=== PATIENT | male | born 1945 | race American Indian/Alaskan Native ===

== ENCOUNTER 2016-10-18 16:31 | Inpatient (IN) | payer MEDICARE ==
[2016-10-18 16:36] VITALS: BMI 25.1
[2016-10-18 17:06] LABS: BASO # 0.1 K/uL (0.0-0.2); BASO % 1.7 % (0.0-2.0); EOS # 0.2 K/uL (0.0-0.7); HEMOGLOBIN 12.8 g/dL (12.0-18.0); LYMPH # 1.2 K/uL (1.0-4.3); LYMPH % 22.8 % (20.0-40.0); MEAN CELL VOLUME 83.8 fL (80.0-94.0); MEAN CORPUSCULAR HEMOGLOBIN 27.2 pg (27.0-31.0); MEAN CORPUSCULAR HGB CONC 32.5 g/dL (33.0-37.0); MEAN PLATELET VOLUME 8.5 fL (7.2-11.7); MONO # 0.6 K/uL (0.0-0.8); MONO % 11.8 % (0.0-10.0); NEUT # 3.1 K/uL (1.8-7.0); NEUT % 59.7 % (50.0-75.0); NRBC % 0.1 % (0.0-2.0); RBC 4.72 Mil/uL (4.40-5.90); RED CELL DISTRIBUTION WIDTH 16.3 % (11.5-14.5); WHITE BLOOD COUNT 5.1 K/uL (4.8-10.8)
--- NOTE | 2016-10-18 17:07 | C.PDOC ---
History Of Present Illness 71 y/o male with hx of Afib, HTN, gout presents to the ED with complaints of slurred speech and weakness. Pt noncompliant with medications (supposed to be on coumadin and BP meds), takes colchicine occasionally. Son states patient will take cayenne pepper when his blood pressure is elevated. Yesterday, patient had episode of slurred speech and weakness, took cayenne and speech returned to normal. Today patient woke up with slurred speech which has been persistent. Patient hasn't been ambulatory for the past year but can usually stand to transfer. Today he isn't able to stand and is weaker than usual. Patient states he hasn't been able to straighten his leg since receiving abx injection in the buttock. Denies chest pain, SOB, vomiting, dizziness, headache or any other complaints. Time Seen by Provider: 10/18/16 16:36 Chief Complaint (Nursing): Weakness/Neurological Deficit History Per: Patient History/Exam Limitations: no limitations Onset/Duration Of Symptoms: Hrs, Persistent Current Symptoms Are (Timing): Still Present Severity: Moderate Recent travel outside of the [place]: No Additional History Per: Family Past Medical History Reviewed: Historical Data, Nursing Documentation, Vital Signs Vital Signs: Last Vital Signs Temp 98.3 F 10/18/16 17:05 Pulse 48 L 10/18/16 18:21 Resp 18 10/18/16 18:21 BP 171/77 H 10/18/16 18:21 Pulse Ox 97 10/18/16 18:21 - Medical History PMH: Arthritis, Atrial Fibrillation, COPD, Depression, HTN, Pneumonia, Chronic Kidney Disease - [facility] Procedures EXCISION OF RIGHT LOWER LEG MUSCLE, OPEN APPROACH, DIAGN (04/09/16) EXCISION OF TIBIAL NERVE, OPEN APPROACH, DIAGNOSTIC (04/09/16) Family History: States: Unknown Family Hx - Social History Hx Alcohol Use: No Hx Substance Use: No - Immunization History Hx Tetanus Toxoid Vaccination: No Hx Influenza Vaccination: No Hx Pneumococcal Vaccination: No Review Of Systems Except As Marked, All Systems Reviewed And Found Negative. Eyes: Negative for: Vision Change Cardiovascular: Negative for: Chest Pain Respiratory: Negative for: Shortness of Breath Gastrointestinal: Negative for: Vomiting Neurological: Positive for: Weakness, Change in Speech (slurred). Negative for : Headache, Dizziness Physical Exam - Physical Exam Appears: Non-toxic, No Acute Distress Skin: Warm, Dry, No Rash Head: Atraumatic, Normacephalic, Other (Head and neck with silver howard discoloration) Eye(s): bilateral: PERRL, EOMI Neck: Normal ROM, Supple Chest: Symmetrical Cardiovascular: Rhythm Regular, No Murmur Respiratory: Normal Breath Sounds, No Rales, No Rhonchi, No Wheezing Gastrointestinal/Abdominal: Normal Exam, Soft, No Tenderness Extremity: Normal ROM, Other (able to stand on legs; unable to fully extend right leg) Extremity: Bilateral: Atraumatic Pulses: Left Dorsalis Pedis: Normal, Right Dorsalis Pedis: Normal Neurological/Psych: Oriented x3, Normal Speech, Normal Cognition, Normal Motor, Normal Sensation Extremity: Right: No Drift, Left: No Drift, Upper: No Drift, Lower: No Drift ED Course And Treatment - Laboratory Results Result Diagrams: 10/18/16 16:56 10/18/16 16:56 Lab Interpretation: No Changes Compared To Prior Results ECG: Interpreted By Me ECG Rhythm: Atrial Fibrillation (with LVH), ST/T Changes (T wave inversion I, AVL, V4-6) ECG Interpretation: Abnormal O2 Sat by Pulse Oximetry: 98 (room air) Pulse Ox Interpretation: Normal - Radiology CXR: Viewed By Me, Read By Radiologist CXR Interpretation: Yes: No Acute Disease, Cardiomegaly - CT Scan/US CT head Other Rad Studies (CT/US): Read By Radiologist, Radiology Report Reviewed CT/US Interpretation: PROCEDURE: CT HEAD WITHOUT CONTRAST. HISTORY: stroke alert. COMPARISON: Prior head CT 04/10/2016. TECHNIQUE: Axial computed tomography images were obtained through the head/brain without intravenous contrast. Radiation dose: Total exam DLP = 905 mGy-cm. This CT exam was performed using one or more of the following dose reduction techniques: Automated exposure control, adjustment of the mA and/or kV according to patient size, and/or use of iterative reconstruction technique. FINDINGS: HEMORRHAGE: No intracranial hemorrhage. BRAIN: No mass effect or acute edema. Diffusion oral atrophy and chronic microangiopathy appear reiterated as well as a few tiny chronic lacune is at the right base a ganglia anteromedially and a small lobar infarct at the right cerebellum inferiorly. No definite acute or subacute cortical edema or mass effect. Periventricular white matter lucency is again appreciated compatible with chronic microangiopathy. VENTRICLES: Mild diffuse dilatation related to diffuse cerebral atrophy is again identified. . No hydrocephalus. CALVARIUM: Unremarkable. PARANASAL SINUSES: Multiple sinusitis is seen involving numerous bilateral ethmoid air cells as well as the right maximum bilaterals frontal sinuses. Right mastoid and final sinuses disease made include a few small polyps. . MASTOID AIR CELLS: The bilateral mastoid air cells appear clear diffusely however soft tissue seen within the external artery canal suggestive of probable cerumen though other etiologies are possible. Clinically correlate. OTHER FINDINGS: None. IMPRESSION: 1. No acute intracranial hemorrhage, cortical edema or mass-effect is identified at this time. The examination does not appear dramatically changed intracranially compared to prior head CT 04/10/2016. 2. A few tiny chronic images seen at the right base medially once again with a small lobar infarct of the right cerebellum inferiorly. 3. Stable age related neuro degenerative changes are identified. 4. Multifocal sinus disease is as discussed above as well as external auditory canal soft tissue probably reflecting cerumen bilaterally though underlying soft tissue otherwise is not excluded. Clinically correlate further. Findings were discussed with Dr. Edwards. Progress Note: Plan: CT head, EKG, CXR, labs, UA, IV fluids Reevaluation Time: 18:05 Reassessment Condition: Improved (after Labetolol IV.) - Physician Consult Information Time Consulting Physician Contacted: 18:05 Physician Contacted: Michael Chavez Outcome Of Conversation: Patient to be admitted additional neurologic evaluation of slurred speech. Disposition - Disposition Disposition: HOSPITALIZED Disposition Time: 18:36 Condition: STABLE - POA Present On Arrival: None - Clinical Impression Clinical Impression: Atrial fibrillation, Renal insufficiency, Uncontrolled hypertension, Silver poisoning syndrome - Scribe Statement The provider has reviewed the documentation as recorded by the Marek Nash Provider Attestation: All medical record entries made by the Marek were at my direction and personally dictated by me. I have reviewed the chart and agree that the record accurately reflects my personal performance of the history, physical exam, medical decision making, and the department course for this patient. I have also personally directed, reviewed, and agree with the discharge instructions and disposition.
[2016-10-18 17:09] LABS: ALBUMIN 3.8 g/dL (3.5-5.0)
[2016-10-18 17:12] LABS: ALB/GLOB RATIO 1.1 (1.0-2.1)
[2016-10-18 17:13] LABS: CALCIUM 8.9 mg/dl (8.6-10.4)
--- NOTE | 2016-10-18 17:28 | RAD ---
PROCEDURE: CHEST RADIOGRAPH, 1 VIEW HISTORY: AMS COMPARISON: 04/09/2016 FINDINGS: LUNGS: Clear. PLEURA: No pneumothorax or pleural fluid seen. CARDIOVASCULAR: Normal. OSSEOUS STRUCTURES: No significant abnormalities. VISUALIZED UPPER ABDOMEN: Normal. OTHER FINDINGS: None. IMPRESSION: No active disease.
[2016-10-18] MEDS ORDERED: Labetalol 25mg/5ml Syringe IVP STA (17:51)
[2016-10-18] MEDS ORDERED: Labetalol 25mg/5ml Syringe ONE (18:01)
[2016-10-18 19:55] LABS: URINE BACTERIA MOD (<OCC); URINE BILIRUBIN NEGATIVE (NEGATIVE); URINE BLOOD NEGATIVE (NEGATIVE); URINE CLARITY Clear (Clear); URINE COLOR Yellow (YELLOW); URINE GLUCOSE (UA) NORMAL (Normal); URINE LEUKOCYTE ESTERASE NEG Leu/uL (Negative); URINE NITRATE NEGATIVE (NEGATIVE); URINE PROTEIN 2+ mg/dL (NEGATIVE); URINE UROBILINOGEN NORMAL mg/dL (0.2-1.0)
--- NOTE | 2016-10-19 07:57 | CP.PCM.HP ---
History of Present Illness - History of Present Illness History of Present Illness: 71 year old male who comes to the [facility] ER with slurred speech and weakness. Patient had a similar episode in May 2016. He is non compliant with his medications. Mr Cornelius has been peviously treated for atrial fibrillation,hypertension, and osteoarthritis. He frequently self medicates with a liquid silver solution. Present on Admission - Present on Admission Any Indicators Present on Admission: No History of DVT/PE: No History of Uncontrolled Diabetes: No Urinary Catheter: No Decubitus Ulcer Present: No History Surgical Site Infection Following: None Review of Systems - Constitutional Constitutional: Fatigue - EENT Eyes: Decreased Night Vision Nose/Mouth/Throat: Facial Pain - Cardiovascular Cardiovascular: Palpitations - Gastrointestinal Gastrointestinal: Constipation - Musculoskeletal Musculoskeletal: Arthralgias - Integumentary Integumentary: Change in Pigmentation - Neurological Neurological: Numbness Past Patient History - Infectious Disease Hx of Infectious Diseases: None - Tetanus Immunizations Tetanus Immunization: Unknown, >10 years Ago - Past Medical History & Family History Past Medical History?: Yes - Past Social History Smoking Status: denies - CARDIAC Hx Cardiac Disorders: Yes Hx Atrial Fibrillation: Yes Hx Hypertension: Yes Other/Comment: Patient can only state Hypertension can't remember anything else - PULMONARY Hx Respiratory Disorders: Yes Hx Chronic Obstructive Pulmonary Disease (COPD): Yes Hx Pneumonia: Yes Other/Comment: Patient can only state Hypertension can't remember anything else - NEUROLOGICAL Hx Neurological Disorder: No Hx Dizziness: Yes Other/Comment: Patient can only state Hypertension can't remember anything else - HEENT Hx HEENT Problems: No Other/Comment: Patient can only state Hypertension can't remember anything else - RENAL Hx Chronic Kidney Disease: Yes Other/Comment: Patient can only state Hypertension can't remember anything else - ENDOCRINE/METABOLIC Hx Endocrine Disorders: No Other/Comment: Patient can only state Hypertension can't remember anything else - HEMATOLOGICAL/ONCOLOGICAL Hx Blood Disorders: No Other/Comment: Patient can only state Hypertension can't remember anything else - INTEGUMENTARY Hx Dermatological Problems: No Other/Comment: skin has silverish huge. Patient can only state Hypertension can 't remember anything else - MUSCULOSKELETAL/RHEUMATOLOGICAL Hx Arthritis: Yes Hx Falls: No Other/Comment: Patient can only state Hypertension can't remember anything else - GASTROINTESTINAL Hx Gastrointestinal Disorders: No Other/Comment: Patient can only state Hypertension can't remember anything else - GENITOURINARY/GYNECOLOGICAL Hx Genitourinary Disorders: No Other/Comment: Patient can only state Hypertension can't remember anything else - PSYCHIATRIC Hx Substance Use: No - SURGICAL HISTORY Hx Surgeries: No Other/Comment: Patient can only state Hypertension can't remember anything else - ANESTHESIA Hx Anesthesia: No Hx Anesthesia Reactions: No Hx Malignant Hyperthermia: No Meds Allergies/Adverse Reactions: Allergies Allergy/AdvReac Type Severity Reaction Status Date / Time Penicillins Allergy Severe RASH Verified 10/18/16 16:36 ANTIBIOTICS Allergy Severe RASH Uncoded 10/18/16 16:36 Physical Exam - Constitutional Appears: Chronically Ill - Head Exam Head Exam: NORMOCEPHALIC - Eye Exam Eye Exam: Normal appearance Pupil Exam: NORMAL ACCOMODATION - ENT Exam ENT Exam: Normal Exam - Neck Exam Neck exam: Positive for: Normal Inspection - Respiratory Exam Respiratory Exam: Decreased Breath Sounds - Cardiovascular Exam Cardiovascular Exam: Bradycardia - GI/Abdominal Exam GI & Abdominal Exam: Hyperactive Bowel Sounds - Rectal Exam Rectal Exam: Deferred - Exam Exam: NORMAL INSPECTION - Extremities Exam Extremities exam: Positive for: pedal pulses present - Neurological Exam Neurological exam: Oriented x3 - Psychiatric Exam Psychiatric exam: Depressed Results - Vital Signs Recent Vital Signs: Last Vital Signs Temp 98.2 F 10/18/16 23:40 Pulse 50 L 10/19/16 03:17 Resp 20 10/18/16 23:40 BP 189/86 H 10/19/16 06:10 Pulse Ox 96 10/18/16 23:40 - Labs Result Diagrams: 10/18/16 16:56 10/18/16 16:56 Labs: Laboratory Results - last 24 hr 10/18/16 19:40 Urine Color Yellow Urine Clarity Clear Urine pH 6.0 Ur Specific [place] 1.012 Urine Protein 2+ H Urine Glucose (UA) Normal Urine Ketones Negative Urine Blood Negative Urine Nitrate Negative Urine Bilirubin Negative Urine Urobilinogen Normal Ur Leukocyte Esterase Neg Urine WBC (Auto) 1 Urine RBC (Auto) 1 Urine Bacteria Mod H Assessment & Plan (1) Atrial fibrillation Status: Acute Priority: Medium (2) Renal insufficiency Status: Acute Priority: Medium (3) Silver poisoning syndrome Status: Acute Priority: High (4) Uncontrolled hypertension Status: Acute (5) PRITESH (acute kidney injury) Status: Acute (6) Acute non-ST elevation myocardial infarction (NSTEMI) Status: Acute (7) Ambulatory dysfunction Status: Acute (8) Argyrosis Status: Acute (9) CKD (chronic kidney disease) stage 4, GFR 15-29 ml/min Status: Acute (10) CKD (chronic kidney disease), stage III Status: Acute (11) Chest pain Status: Acute (12) DVT (deep venous thrombosis) Status: Acute (13) Deep vein blood clot of right lower extremity Status: Acute Priority: High (14) Gout Status: Acute (15) Hilar mass Status: Acute Priority: Medium (16) Hypertensive chronic kidney disease with stage 1 through stage 4 chronic kidney disease, or unspecified chronic kidney disease Status: Acute (17) Joint pain Status: Acute Priority: Medium (18) Lung infiltrate Status: Acute Priority: Medium (19) Myocardial infarction acute Status: Acute Priority: Medium (20) Non-STEMI (non-ST elevated myocardial infarction) Status: Acute Priority: Medium (21) Prophylactic measure Status: Acute (22) Proteinuria Status: Acute (23) Weakness Status: Acute Priority: Medium (24) Atrial fibrillation by electrocardiogram Status: Chronic Priority: Medium (25) CKD (chronic kidney disease) stage 3, GFR 30-59 ml/min Status: Chronic Priority: Medium (26) Coronary artery disease Status: Chronic
[2016-10-19 08:09] LABS: HEMOGLOBIN 12.8 g/dL (12.0-18.0); MEAN CELL VOLUME 84.9 fL (80.0-94.0); MEAN CORPUSCULAR HEMOGLOBIN 27.6 pg (27.0-31.0); MEAN CORPUSCULAR HGB CONC 32.4 g/dL (33.0-37.0); MEAN PLATELET VOLUME 9.1 fL (7.2-11.7); RBC 4.65 Mil/uL (4.40-5.90); RED CELL DISTRIBUTION WIDTH 16.4 % (11.5-14.5); WHITE BLOOD COUNT 4.5 K/uL (4.8-10.8)
[2016-10-19 08:19] LABS: ALBUMIN 3.3 g/dL (3.5-5.0); PROTHROMBIN TIME 11.7 SECONDS (9.7-12.2)
[2016-10-19 08:22] LABS: CALCIUM 8.7 mg/dl (8.6-10.4)
--- NOTE | 2016-10-19 10:21 | MRI ---
PROCEDURE: MRI BRAIN WITHOUT CONTRAST HISTORY: STROKE COMPARISON: Comparison made with CT scan of the brain dated 10/18/2016 TECHNIQUE: Multiplanar, multisequence MR images of the brain were obtained without intravenous contrast enhancement. FINDINGS: HEMORRHAGE: No acute parenchymal, subarachnoid or extra-axial DWI: Study demonstrates an area of restricted diffusion in the left aspect of the midpons that exhibits a mismatch appearance on ADC map consistent with an acute/ subacute infarct. BRAIN PARENCHYMA: Additionally, mild chronic periventricular white matter ischemic changes the the ascending standing peripherally into the deep and subcortical white matter both cerebral hemispheres. Few more discrete deep and subcortical white matter as well as basal nuclei lacunar type infarcts. Small - medium-sized chronic appearing infarct in the right cerebellum loss also noted Moderate generalized volume loss. VENTRICLES: No evidence of obstructive hydrocephalus. CRANIUM: No acute calvarial abnormalities ORBITS: Orbits and contents grossly unremarkable PARANASAL SINUSES/MASTOIDS: Mild mucosal thickening within the maxillary sinuses as well as a few ethmoid air cells extending superiorly into the frontal sinus. VASCULAR SYSTEM: Visualized major vascular flow voids at skull base are patent. OTHER FINDINGS: None. IMPRESSION: There is a small acute/ subacute infarct within the left mid tuyet. Chronic appearing white matter, basal nuclei and right cerebellar ischemic changes. Moderate volume loss. No acute intracranial hemorrhage. Note that the findings were discussed with 6T Nurse Dunn at approximately at 10:15 a.m. with written down and read back verification.
--- NOTE | 2016-10-19 10:34 | CP.PCM.CON ---
History of Present Illness - History of Present Illness History of Present Illness: 71 y/o male with hx of Afib, HTN, gout presents to the ED with complaints of slurred speech and weakness. Pt noncompliant with medications (supposed to be on coumadin and BP meds), takes colchicine occasionally. Son states patient will take cayenne pepper when his blood pressure is elevated. Yesterday, patient had episode of slurred speech and weakness, took cayenne and speech returned to normal. Today patient woke up with slurred speech which has been persistent. Patient hasn't been ambulatory for the past year but can usually stand to transfer. Today he isn't able to stand and is weaker than usual. Patient states he hasn't been able to straighten his leg since receiving abx injection in the buttock. Denies chest pain, SOB, vomiting, dizziness, headache or any other complaints. PMH: HTN AFIB CKD 3-4 S/P CVA DEMENTIA SILVER POISONING SYNDROME PSH-NONE Review of Systems - Review of Systems Systems not reviewed;Unavailable: Altered Mental Status Past Patient History - Infectious Disease Hx of Infectious Diseases: None - Tetanus Immunizations Tetanus Immunization: Unknown, >10 years Ago - Past Medical History & Family History Past Medical History?: Yes Past Family History: Reviewed and not pertinent - Past Social History Smoking Status: Former Smoker Chewing Tobacco Use: No Cigar Use: No Alcohol: None Drugs: Denies - CARDIAC Hx Hypertension: Yes - PULMONARY Hx Chronic Obstructive Pulmonary Disease (COPD): Yes - NEUROLOGICAL Hx Neurological Disorder: No Hx Dizziness: Yes Other/Comment: Patient can only state Hypertension can't remember anything else - HEENT Hx HEENT Problems: No Other/Comment: Patient can only state Hypertension can't remember anything else - RENAL Hx Chronic Kidney Disease: Yes Other/Comment: Patient can only state Hypertension can't remember anything else - ENDOCRINE/METABOLIC Hx Endocrine Disorders: No Other/Comment: Patient can only state Hypertension can't remember anything else - HEMATOLOGICAL/ONCOLOGICAL Hx Blood Disorders: No Other/Comment: Patient can only state Hypertension can't remember anything else - INTEGUMENTARY Hx Dermatological Problems: No Other/Comment: skin has silverish huge. Patient can only state Hypertension can 't remember anything else - MUSCULOSKELETAL/RHEUMATOLOGICAL Hx Arthritis: Yes - GASTROINTESTINAL Hx Gastrointestinal Disorders: No Other/Comment: Patient can only state Hypertension can't remember anything else - GENITOURINARY/GYNECOLOGICAL Hx Genitourinary Disorders: No Other/Comment: Patient can only state Hypertension can't remember anything else - PSYCHIATRIC Hx Substance Use: No - SURGICAL HISTORY Hx Surgeries: No Other/Comment: Patient can only state Hypertension can't remember anything else - ANESTHESIA Hx Anesthesia: No Hx Anesthesia Reactions: No Hx Malignant Hyperthermia: No Meds Allergies/Adverse Reactions: Allergies Allergy/AdvReac Type Severity Reaction Status Date / Time Penicillins Allergy Severe RASH Verified 10/18/16 16:36 ANTIBIOTICS Allergy Severe RASH Uncoded 10/18/16 16:36 - Medications Medications: Current Medications Losartan Potassium (Cozaar) 100 mg PO DAILY DANNY Physical Exam - Constitutional Appears: No Acute Distress, Chronically Ill - Head Exam Head Exam: ATRAUMATIC, NORMAL INSPECTION - Eye Exam Eye Exam: EOMI, Normal appearance - Neck Exam Neck exam: Positive for: Normal Inspection. Negative for: Tenderness - Respiratory Exam Respiratory Exam: Clear to Auscultation Bilateral, NORMAL BREATHING PATTERN - Cardiovascular Exam Cardiovascular Exam: REGULAR RHYTHM, +S1 - GI/Abdominal Exam GI & Abdominal Exam: Soft. absent: Tenderness - Extremities Exam Extremities exam: Positive for: normal inspection. Negative for: tenderness - Neurological Exam Neurological exam: Altered, CN II-XII Intact - Psychiatric Exam Psychiatric exam: Anxious - Skin Skin Exam: Dry, Warm Results - Vital Signs Recent Vital Signs: Last Vital Signs Temp 97.0 F L 10/19/16 08:20 Pulse 59 L 10/19/16 08:20 Resp 20 10/19/16 08:20 BP 193/93 H 10/19/16 08:20 Pulse Ox 97 10/19/16 08:20 - Labs Result Diagrams: 10/19/16 07:28 10/19/16 07:28 Labs: Laboratory Results - last 24 hr 10/18/16 10/19/16 10/19/16 19:40 07:28 07:28 WBC RBC Hgb Hct MCV MCH MCHC RDW Plt Count MPV PT 11.7 INR 1.0 APTT 33 Sodium Potassium Chloride Carbon Dioxide Anion Gap BUN Creatinine Est GFR ( Amer) Est GFR (Non-Af Amer) Random Glucose Calcium Total Bilirubin AST ALT Alkaline Phosphatase Total Protein Albumin Globulin Albumin/Globulin Ratio Homocysteine 14.4 Urine Color Yellow Urine Clarity Clear Urine pH 6.0 Ur Specific [place] 1.012 Urine Protein 2+ H Urine Glucose (UA) Normal Urine Ketones Negative Urine Blood Negative Urine Nitrate Negative Urine Bilirubin Negative Urine Urobilinogen Normal Ur Leukocyte Esterase Neg Urine WBC (Auto) 1 Urine RBC (Auto) 1 Urine Bacteria Mod H 10/19/16 10/19/16 07:28 07:28 WBC 4.5 L RBC 4.65 Hgb 12.8 Hct 39.4 MCV 84.9 MCH 27.6 MCHC 32.4 L RDW 16.4 H Plt Count 194 MPV 9.1 PT INR APTT Sodium 140 Potassium 3.9 Chloride 108 H Carbon Dioxide 20 L Anion Gap 16 BUN 25 H Creatinine 2.6 H Est GFR ( Amer) 30 Est GFR (Non-Af Amer) 24 Random Glucose 87 Calcium 8.7 Total Bilirubin 1.9 H AST 28 ALT 38 Alkaline Phosphatase 80 Total Protein 6.7 Albumin 3.3 L Globulin 3.4 Albumin/Globulin Ratio 1.0 Homocysteine Urine Color Urine Clarity Urine pH Ur Specific [place] Urine Protein Urine Glucose (UA) Urine Ketones Urine Blood Urine Nitrate Urine Bilirubin Urine Urobilinogen Ur Leukocyte Esterase Urine WBC (Auto) Urine RBC (Auto) Urine Bacteria Assessment & Plan (1) Atrial fibrillation Status: Acute Priority: Medium (2) Silver poisoning syndrome Status: Acute Priority: High (3) CKD (chronic kidney disease), stage III Status: Acute (4) Hypertensive chronic kidney disease with stage 1 through stage 4 chronic kidney disease, or unspecified chronic kidney disease Status: Acute - Assessment and Plan (Free Text) Plan: SERIAL CHEMISTRIES MONITOR RENAL FUNCTION CLOSELY RENAL US CHECK FOR PROTEINURIA MONITOR MENTAL STATUS BP UNCONTROLLED- INCREASE MEDS
[2016-10-19] MEDS: Albuterol 0.042% Inhal Sol (1.25 mg/3 mL) UD INH SCH ×2 (13:12→19:41)
--- NOTE | 2016-10-19 13:28 | US ---
PROCEDURE: Ultrasound of the Kidneys HISTORY: CKD EVAL COMPARISON: None available. TECHNIQUE: Sonogram of the kidneys. FINDINGS: RIGHT KIDNEY: Measures: 11.3 x 5.5 x 5.2 is cm. Normal size right kidney. There is markedly poor definition of the cortical and medullary parenchyma with overall renal parenchyma appearing echogenic suggesting intrinsic medical renal disease. Multiple small right renal simple cysts identified appear generally with exception of the dominant simple cyst at the upper pole, somewhat exophytic, measuring 9.2 x 7.5 x 7 x t 8.0 cm. There are 3 additional mid and lower pole right renal parenchymal cysts which are approximately 1 cm size or smaller. No stone, solid mass lesion or hydronephrosis visualized. No perinephric fluid collection. LEFT KIDNEY: Measures: 9.5 x 3.8 x 4.4 cm. The left kidney is again seen to be normal in overall size but is echogenic and overall renal parenchyma similar to that the right kidney, again suggesting intrinsic medical renal disease. Three simple cyst identified at the left kidney with a midpole renal cyst measuring 1.8 x 1.1 x 1.4 cm. Lower pole left renal cyst measures 1.8 x 1.9 x 1.8 cm within its lower pole left renal cyst measuring 2.1 x 1.8 x 1.8 cm. No stone, solid mass lesion or hydronephrosis visualized. No perinephric fluid collection identified. OTHER FINDINGS: None. IMPRESSION: 1. No obstructive uropathy is appreciated bilaterally or suspicious solid mass. 2. Bilateral simple renal cysts are identified greater at the right than left kidney with a dominant cyst measuring 9.2 cm at the upper pole right kidney. 3. Intrinsic medical renal disease is suggested bilaterally.
[2016-10-19 15:31] LABS: URINE BILIRUBIN NEGATIVE (NEGATIVE); URINE BLOOD NEGATIVE (NEGATIVE); URINE CLARITY Clear (Clear); URINE COLOR Yellow (YELLOW); URINE GLUCOSE (UA) NORMAL (Normal); URINE LEUKOCYTE ESTERASE NEG Leu/uL (Negative); URINE NITRATE NEGATIVE (NEGATIVE); URINE PROTEIN 2+ mg/dL (NEGATIVE); URINE UROBILINOGEN NORMAL mg/dL (0.2-1.0)
--- NOTE | 2016-10-19 18:20 | CP.PCM.CON ---
History of Present Illness - History of Present Illness History of Present Illness: 71 yo male, known to me from previous hospitalizations, is admitted for a slurred speech and generalized wekness. An MRI of the brain reveals an acute left pontine infarct. Known to have a hypertension, a COPD, a CAD, a chronic atrial fibrillation, a CKD, a gout, a COPD, a dementia, He refused to take his BP medications and his Warfarin. Review of Systems - Cardiovascular Cardiovascular: Irregular Heart Rhythm - Musculoskeletal Musculoskeletal: Muscle Weakness - Neurological Neurological: Abnormal Speech, Weakness Past Patient History - Infectious Disease Hx of Infectious Diseases: None - Tetanus Immunizations Tetanus Immunization: Unknown, >10 years Ago - Past Medical History & Family History Past Medical History?: Yes Past Family History: Reviewed and not pertinent - Past Social History Smoking Status: Former Smoker Chewing Tobacco Use: No Cigar Use: No Alcohol: None Drugs: Denies - CARDIAC Hx Hypertension: Yes - PULMONARY Hx Chronic Obstructive Pulmonary Disease (COPD): Yes - NEUROLOGICAL Hx Neurological Disorder: No Hx Dizziness: Yes Other/Comment: Patient can only state Hypertension can't remember anything else - HEENT Hx HEENT Problems: No Other/Comment: Patient can only state Hypertension can't remember anything else - RENAL Hx Chronic Kidney Disease: Yes Other/Comment: Patient can only state Hypertension can't remember anything else - ENDOCRINE/METABOLIC Hx Endocrine Disorders: No Other/Comment: Patient can only state Hypertension can't remember anything else - HEMATOLOGICAL/ONCOLOGICAL Hx Blood Disorders: No Other/Comment: Patient can only state Hypertension can't remember anything else - INTEGUMENTARY Hx Dermatological Problems: No Other/Comment: skin has silverish huge. Patient can only state Hypertension can 't remember anything else - MUSCULOSKELETAL/RHEUMATOLOGICAL Hx Arthritis: Yes - GASTROINTESTINAL Hx Gastrointestinal Disorders: No Other/Comment: Patient can only state Hypertension can't remember anything else - GENITOURINARY/GYNECOLOGICAL Hx Genitourinary Disorders: No Other/Comment: Patient can only state Hypertension can't remember anything else - PSYCHIATRIC Hx Substance Use: No - SURGICAL HISTORY Hx Surgeries: No Other/Comment: Patient can only state Hypertension can't remember anything else - ANESTHESIA Hx Anesthesia: No Hx Anesthesia Reactions: No Hx Malignant Hyperthermia: No Meds Allergies/Adverse Reactions: Allergies Allergy/AdvReac Type Severity Reaction Status Date / Time Penicillins Allergy Severe RASH Verified 10/18/16 16:36 ANTIBIOTICS Allergy Severe RASH Uncoded 10/18/16 16:36 - Medications Medications: Current Medications Albuterol Sulfate (Albuterol 0.042% Inhal Lila (1.25mg/3ml) Ud) 1.25 mg INH RTID [facility] Last Admin: 10/19/16 13:12 Dose: Not Given Amlodipine Besylate (Norvasc) 10 mg PO DAILY [facility] Last Admin: 10/19/16 17:41 Dose: 10 mg Clopidogrel Bisulfate (Plavix) 75 mg PO DAILY [facility] Last Admin: 10/19/16 12:15 Dose: 75 mg Losartan Potassium (Cozaar) 100 mg PO DAILY [facility] Last Admin: 10/19/16 10:33 Dose: 100 mg Physical Exam - Constitutional Appears: Chronically Ill - Head Exam Head Exam: NORMAL INSPECTION - Eye Exam Eye Exam: Normal appearance - ENT Exam ENT Exam: Normal Exam - Neck Exam Neck exam: Positive for: Normal Inspection - Respiratory Exam Respiratory Exam: Clear to Auscultation Bilateral, NORMAL BREATHING PATTERN - Cardiovascular Exam Cardiovascular Exam: Irregular Rhythm - GI/Abdominal Exam GI & Abdominal Exam: Normal Bowel Sounds, Soft - Rectal Exam Rectal Exam: Deferred - Exam Exam: NORMAL INSPECTION - Extremities Exam Extremities exam: Positive for: normal inspection - Back Exam Back exam: NORMAL INSPECTION - Neurological Exam Neurological exam: Abnormal Gait, Altered - Psychiatric Exam Psychiatric exam: Anxious - Skin Skin Exam: Dry, Intact, Normal Color Results - Vital Signs Recent Vital Signs: Last Vital Signs Temp 97.7 F 10/19/16 15:21 Pulse 54 L 10/19/16 16:22 Resp 18 10/19/16 15:21 BP 186/88 H 10/19/16 15:21 Pulse Ox 98 10/19/16 15:21 - Labs Result Diagrams: 10/19/16 07:28 10/19/16 07:28 Labs: Laboratory Results - last 24 hr 10/18/16 10/19/16 10/19/16 19:40 07:28 07:28 WBC RBC Hgb Hct MCV MCH MCHC RDW Plt Count MPV PT 11.7 INR 1.0 APTT 33 Sodium Potassium Chloride Carbon Dioxide Anion Gap BUN Creatinine Est GFR ( Amer) Est GFR (Non-Af Amer) Random Glucose Calcium Total Bilirubin AST ALT Alkaline Phosphatase Total Protein Albumin Globulin Albumin/Globulin Ratio Homocysteine 14.4 Urine Color Yellow Urine Clarity Clear Urine pH 6.0 Ur Specific [place] 1.012 Urine Protein 2+ H Urine Glucose (UA) Normal Urine Ketones Negative Urine Blood Negative Urine Nitrate Negative Urine Bilirubin Negative Urine Urobilinogen Normal Ur Leukocyte Esterase Neg Urine WBC (Auto) 1 Urine RBC (Auto) 1 Urine Bacteria Mod H Ur Random Sodium 10/19/16 10/19/16 10/19/16 07:28 07:28 15:10 WBC 4.5 L RBC 4.65 Hgb 12.8 Hct 39.4 MCV 84.9 MCH 27.6 MCHC 32.4 L RDW 16.4 H Plt Count 194 MPV 9.1 PT INR APTT Sodium 140 Potassium 3.9 Chloride 108 H Carbon Dioxide 20 L Anion Gap 16 BUN 25 H Creatinine 2.6 H Est GFR ( Amer) 30 Est GFR (Non-Af Amer) 24 Random Glucose 87 Calcium 8.7 Total Bilirubin 1.9 H AST 28 ALT 38 Alkaline Phosphatase 80 Total Protein 6.7 Albumin 3.3 L Globulin 3.4 Albumin/Globulin Ratio 1.0 Homocysteine Urine Color Urine Clarity Urine pH Ur Specific [place] Urine Protein Urine Glucose (UA) Urine Ketones Urine Blood Urine Nitrate Urine Bilirubin Urine Urobilinogen Ur Leukocyte Esterase Urine WBC (Auto) Urine RBC (Auto) Urine Bacteria Ur Random Sodium 94 10/19/16 15:10 WBC RBC Hgb Hct MCV MCH MCHC RDW Plt Count MPV PT INR APTT Sodium Potassium Chloride Carbon Dioxide Anion Gap BUN Creatinine Est GFR ( Amer) Est GFR (Non-Af Amer) Random Glucose Calcium Total Bilirubin AST ALT Alkaline Phosphatase Total Protein Albumin Globulin Albumin/Globulin Ratio Homocysteine Urine Color Yellow Urine Clarity Clear Urine pH 7.0 Ur Specific [place] 1.009 Urine Protein 2+ H Urine Glucose (UA) Normal Urine Ketones Negative Urine Blood Negative Urine Nitrate Negative Urine Bilirubin Negative Urine Urobilinogen Normal Ur Leukocyte Esterase Neg Urine WBC (Auto) < 1 Urine RBC (Auto) Urine Bacteria Ur Random Sodium Assessment & Plan (1) Atrial fibrillation Assessment and Plan: To restart anticoagulation. Status: Acute Priority: Medium (2) Acute thromboembolic cerebrovascular accident Assessment and Plan: PT as per Dr Cook. Status: Acute (3) Uncontrolled hypertension Assessment and Plan: To continue Losartan and Amlodipine. Status: Acute
--- NOTE | 2016-10-19 20:55 | CP.PCM.CON ---
History of Present Illness - History of Present Illness History of Present Illness: CONSULT DICTATED Past Patient History - Infectious Disease Hx of Infectious Diseases: None - Tetanus Immunizations Tetanus Immunization: Unknown, >10 years Ago - Past Medical History & Family History Past Medical History?: Yes Past Family History: Reviewed and not pertinent - Past Social History Smoking Status: Former Smoker Chewing Tobacco Use: No Cigar Use: No Alcohol: None Drugs: Denies - CARDIAC Hx Hypertension: Yes - PULMONARY Hx Chronic Obstructive Pulmonary Disease (COPD): Yes - NEUROLOGICAL Hx Neurological Disorder: No Hx Dizziness: Yes Other/Comment: Patient can only state Hypertension can't remember anything else - HEENT Hx HEENT Problems: No Other/Comment: Patient can only state Hypertension can't remember anything else - RENAL Hx Chronic Kidney Disease: Yes Other/Comment: Patient can only state Hypertension can't remember anything else - ENDOCRINE/METABOLIC Hx Endocrine Disorders: No Other/Comment: Patient can only state Hypertension can't remember anything else - HEMATOLOGICAL/ONCOLOGICAL Hx Blood Disorders: No Other/Comment: Patient can only state Hypertension can't remember anything else - INTEGUMENTARY Hx Dermatological Problems: No Other/Comment: skin has silverish huge. Patient can only state Hypertension can 't remember anything else - MUSCULOSKELETAL/RHEUMATOLOGICAL Hx Arthritis: Yes - GASTROINTESTINAL Hx Gastrointestinal Disorders: No Other/Comment: Patient can only state Hypertension can't remember anything else - GENITOURINARY/GYNECOLOGICAL Hx Genitourinary Disorders: No Other/Comment: Patient can only state Hypertension can't remember anything else - PSYCHIATRIC Hx Substance Use: No - SURGICAL HISTORY Hx Surgeries: No Other/Comment: Patient can only state Hypertension can't remember anything else - ANESTHESIA Hx Anesthesia: No Hx Anesthesia Reactions: No Hx Malignant Hyperthermia: No Meds Allergies/Adverse Reactions: Allergies Allergy/AdvReac Type Severity Reaction Status Date / Time Penicillins Allergy Severe RASH Verified 10/18/16 16:36 ANTIBIOTICS Allergy Severe RASH Uncoded 10/18/16 16:36 - Medications Medications: Current Medications Albuterol Sulfate (Albuterol 0.042% Inhal Lila (1.25mg/3ml) Ud) 1.25 mg INH RTID [facility] Last Admin: 10/19/16 19:41 Dose: 1.25 mg Amlodipine Besylate (Norvasc) 10 mg PO DAILY [facility] Last Admin: 10/19/16 17:41 Dose: 10 mg Apixaban (Eliquis) 2.5 mg PO BID [facility] Clopidogrel Bisulfate (Plavix) 75 mg PO DAILY [facility] Last Admin: 10/19/16 12:15 Dose: 75 mg Losartan Potassium (Cozaar) 100 mg PO DAILY [facility] Last Admin: 10/19/16 10:33 Dose: 100 mg Results - Vital Signs Recent Vital Signs: Last Vital Signs Temp 97.7 F 10/19/16 15:21 Pulse 80 10/19/16 19:45 Resp 18 10/19/16 15:21 BP 186/88 H 10/19/16 15:21 Pulse Ox 98 10/19/16 15:21 - Labs Result Diagrams: 10/19/16 07:28 10/19/16 07:28 Labs: Laboratory Results - last 24 hr 10/19/16 10/19/16 10/19/16 07:28 07:28 07:28 WBC 4.5 L RBC 4.65 Hgb 12.8 Hct 39.4 MCV 84.9 MCH 27.6 MCHC 32.4 L RDW 16.4 H Plt Count 194 MPV 9.1 PT 11.7 INR 1.0 APTT 33 Sodium Potassium Chloride Carbon Dioxide Anion Gap BUN Creatinine Est GFR ( Amer) Est GFR (Non-Af Amer) Random Glucose Calcium Total Bilirubin AST ALT Alkaline Phosphatase Total Protein Albumin Globulin Albumin/Globulin Ratio Homocysteine 14.4 Urine Color Urine Clarity Urine pH Ur Specific [place] Urine Protein Urine Glucose (UA) Urine Ketones Urine Blood Urine Nitrate Urine Bilirubin Urine Urobilinogen Ur Leukocyte Esterase Urine WBC (Auto) Ur Random Sodium 10/19/16 10/19/16 10/19/16 07:28 15:10 15:10 WBC RBC Hgb Hct MCV MCH MCHC RDW Plt Count MPV PT INR APTT Sodium 140 Potassium 3.9 Chloride 108 H Carbon Dioxide 20 L Anion Gap 16 BUN 25 H Creatinine 2.6 H Est GFR ( Amer) 30 Est GFR (Non-Af Amer) 24 Random Glucose 87 Calcium 8.7 Total Bilirubin 1.9 H AST 28 ALT 38 Alkaline Phosphatase 80 Total Protein 6.7 Albumin 3.3 L Globulin 3.4 Albumin/Globulin Ratio 1.0 Homocysteine Urine Color Yellow Urine Clarity Clear Urine pH 7.0 Ur Specific [place] 1.009 Urine Protein 2+ H Urine Glucose (UA) Normal Urine Ketones Negative Urine Blood Negative Urine Nitrate Negative Urine Bilirubin Negative Urine Urobilinogen Normal Ur Leukocyte Esterase Neg Urine WBC (Auto) < 1 Ur Random Sodium 94
--- NOTE | 2016-10-19 22:37 | CP.PCM.PN ---
Subjective - Date & Time of Evaluation Date of Evaluation: 10/19/16 Time of Evaluation: 13:35 - Subjective Subjective: Patient continues with slurred speech. Creatinine 2.6 . He was evaluatedby Dr Hauser. Renal ultrasound requested. MRI of the brain reveals a small infarct of the left tuyet. Patient was also seen by Dr Cook. Objective - Vital Signs/Intake and Output Vital Signs (last 24 hours): Temp Pulse Resp BP Pulse Ox 97.7 F 80 18 186/88 H 98 10/19/16 15:21 10/19/16 19:45 10/19/16 15:21 10/19/16 15:21 10/19/16 15:21 Intake and Output: 10/19/16 10/20/16 18:59 06:59 Intake Total 350 Output Total 750 100 Balance -400 -100 - Medications Medications: Current Medications Albuterol Sulfate (Albuterol 0.042% Inhal Lila (1.25mg/3ml) Ud) 1.25 mg INH RTID [facility] Last Admin: 10/19/16 19:41 Dose: 1.25 mg Amlodipine Besylate (Norvasc) 10 mg PO DAILY [facility] Last Admin: 10/19/16 17:41 Dose: 10 mg Apixaban (Eliquis) 2.5 mg PO BID [facility] Clopidogrel Bisulfate (Plavix) 75 mg PO DAILY [facility] Last Admin: 10/19/16 12:15 Dose: 75 mg Losartan Potassium (Cozaar) 100 mg PO DAILY [facility] Last Admin: 10/19/16 10:33 Dose: 100 mg - Labs Labs: 10/19/16 07:28 10/19/16 07:28 PT 11.7 SECONDS (9.7-12.2) 10/19/16 07:28 INR 1.0 10/19/16 07:28 APTT 33 SECONDS (21-34) 10/19/16 07:28 - Constitutional Appears: No Acute Distress - Head Exam Head Exam: NORMAL INSPECTION - Eye Exam Eye Exam: Normal appearance - ENT Exam ENT Exam: Normal Exam - Neck Exam Neck Exam: Normal Inspection - Respiratory Exam Respiratory Exam: Decreased Breath Sounds - Cardiovascular Exam Cardiovascular Exam: Irregular Rhythm - GI/Abdominal Exam GI & Abdominal Exam: Normal Bowel Sounds - Rectal Exam Rectal Exam: Deferred - Exam Exam: NORMAL INSPECTION - Extremities Exam Extremities Exam: Tenderness - Back Exam Back Exam: NORMAL INSPECTION - Psychiatric Exam Psychiatric exam: Depressed - Skin Skin Exam: Dry Assessment and Plan (1) Atrial fibrillation Status: Acute (2) Renal insufficiency Status: Acute (3) DVT (deep venous thrombosis) Status: Acute (4) Gout Status: Acute (5) Hypertensive chronic kidney disease with stage 1 through stage 4 chronic kidney disease, or unspecified chronic kidney disease Status: Acute (6) Proteinuria Status: Acute (7) Weakness Status: Acute (8) Atrial fibrillation by electrocardiogram Status: Chronic (9) CKD (chronic kidney disease) stage 3, GFR 30-59 ml/min Status: Chronic
--- NOTE | 2016-10-20 00:32 | CARD ---
APPROVED REPORT EKG Measurement Heart [id number] <Conclusion> Atrial fibrillation with slow ventricular response Minimal voltage criteria for LVH, may be normal variant ST & T wave abnormality, consider anterolateral ischemia Abnormal ECG
[2016-10-20 05:23] LABS: ABG ALLEN TEST POS; ARTERIAL BLOOD GAS HEMOGLOBIN 12.3 g/dL (11.7-17.4); ARTERIAL BLOOD GAS O2 SAT 97.1 % (95-98); ARTERIAL BLOOD GAS PCO2 32 mm/Hg (35-45); ARTERIAL BLOOD GAS PH 7.45 (7.35-7.45); ARTERIAL BLOOD GAS PO2 74 mm/Hg (80-100); ARTERIAL BLOOD GAS TCO2 23.2 mmol/L (22-28)
[2016-10-20 07:24] LABS: ALBUMIN 3.3 g/dL (3.5-5.0)
[2016-10-20] MEDS: Albuterol 0.042% Inhal Sol (1.25 mg/3 mL) UD INH SCH ×3 (07:24→19:35)
[2016-10-20 07:27] LABS: ALB/GLOB RATIO 0.9 (1.0-2.1); HEMOGLOBIN 12.7 g/dL (12.0-18.0); MEAN CELL VOLUME 84.2 fL (80.0-94.0); MEAN CORPUSCULAR HEMOGLOBIN 27.2 pg (27.0-31.0); MEAN CORPUSCULAR HGB CONC 32.3 g/dL (33.0-37.0); RBC 4.66 Mil/uL (4.40-5.90); RED CELL DISTRIBUTION WIDTH 16.8 % (11.5-14.5); WHITE BLOOD COUNT 4.9 K/uL (4.8-10.8)
[2016-10-20 07:28] LABS: CALCIUM 8.5 mg/dl (8.6-10.4); MAGNESIUM 2.2 mg/dL (1.6-2.3)
--- NOTE | 2016-10-20 15:03 | CP.PCM.PN ---
Subjective - Date & Time of Evaluation Date of Evaluation: 10/20/16 Time of Evaluation: 15:00 - Subjective Subjective: Confused as before; unclear if pt with new complaints Renal US consistent with CKD Spills about 1000mg proteinuria HTn still uncontrolled Creat sl higher at 2.8 Objective - Vital Signs/Intake and Output Vital Signs (last 24 hours): Temp Pulse Resp BP Pulse Ox 98.0 F 58 L 18 174/85 H 100 10/20/16 07:55 10/20/16 12:03 10/20/16 07:55 10/20/16 07:55 10/20/16 07:55 Intake and Output: 10/20/16 10/20/16 06:59 18:59 Output Total 350 Balance -350 - Medications Medications: Current Medications Albuterol Sulfate (Albuterol 0.042% Inhal Lila (1.25mg/3ml) Ud) 1.25 mg INH RTID [facility] Last Admin: 10/20/16 13:16 Dose: 1.25 mg Amlodipine Besylate (Norvasc) 10 mg PO DAILY [facility] Last Admin: 10/20/16 09:17 Dose: 10 mg Apixaban (Eliquis) 2.5 mg PO BID [facility] Last Admin: 10/20/16 09:17 Dose: 2.5 mg Clopidogrel Bisulfate (Plavix) 75 mg PO DAILY [facility] Last Admin: 10/20/16 09:17 Dose: 75 mg Losartan Potassium (Cozaar) 100 mg PO DAILY [facility] Last Admin: 10/20/16 09:17 Dose: 100 mg - Labs Labs: 10/20/16 07:05 10/20/16 07:05 PT 11.7 SECONDS (9.7-12.2) 10/19/16 07:28 INR 1.0 10/19/16 07:28 APTT 33 SECONDS (21-34) 10/19/16 07:28 - Constitutional Appears: No Acute Distress, Chronically Ill - Head Exam Head Exam: ATRAUMATIC, NORMAL INSPECTION - Eye Exam Eye Exam: EOMI, Normal appearance - Neck Exam Neck Exam: Normal Inspection. absent: Tenderness - Respiratory Exam Respiratory Exam: Clear to Ausculation Bilateral, NORMAL BREATHING PATTERN - Cardiovascular Exam Cardiovascular Exam: REGULAR RHYTHM, +S1 - GI/Abdominal Exam GI & Abdominal Exam: Soft. absent: Tenderness - Extremities Exam Extremities Exam: Normal Inspection. absent: Tenderness - Neurological Exam Neurological Exam: Alert, CN II-XII Intact - Skin Skin Exam: Dry, Rash, Warm Assessment and Plan (1) Atrial fibrillation Status: Acute (2) Silver poisoning syndrome Status: Acute (3) Hypertensive chronic kidney disease with stage 1 through stage 4 chronic kidney disease, or unspecified chronic kidney disease Status: Acute (4) CKD stage 4 secondary to hypertension Status: Acute - Assessment and Plan (Free Text) Plan: Serial chemistries Increase BP meds
--- NOTE | 2016-10-20 17:38 | CP.PCM.PN ---
Subjective - Date & Time of Evaluation Date of Evaluation: 10/20/16 Time of Evaluation: 07:05 - Subjective Subjective: PATIENT SLEEPY HARD TO AROUSABLE ON AWAKENING SPEECH IS NORMAL LEFT NLF FLATTENED MILD HEMIPARESIS MRI BRAIN REVIEWED C/W SMALL VESSEL DISEASE IN BRAIN STEM ON PLAVIX AND ELIQUIS - TOLERATING GOOD OOB PT REHAB PLACEMENT Objective - Vital Signs/Intake and Output Vital Signs (last 24 hours): Temp Pulse Resp BP Pulse Ox 98.1 F 59 L 18 184/93 H 96 10/20/16 15:45 10/20/16 15:45 10/20/16 15:45 10/20/16 15:45 10/20/16 15:45 Intake and Output: 10/20/16 10/20/16 06:59 18:59 Intake Total 350 Output Total 350 725 Balance -350 -375 - Medications Medications: Current Medications Albuterol Sulfate (Albuterol 0.042% Inhal Lila (1.25mg/3ml) Ud) 1.25 mg INH RTID [facility] Last Admin: 10/20/16 13:16 Dose: 1.25 mg Amlodipine Besylate (Norvasc) 10 mg PO DAILY [facility] Last Admin: 10/20/16 09:17 Dose: 10 mg Apixaban (Eliquis) 2.5 mg PO BID [facility] Last Admin: 10/20/16 09:17 Dose: 2.5 mg Clopidogrel Bisulfate (Plavix) 75 mg PO DAILY [facility] Last Admin: 10/20/16 09:17 Dose: 75 mg Ferric Sodium Gluconate Complex (Ferrlecit) 125 mg IVPB DAILY [facility] Stop: 10/23/16 10:01 Hydralazine HCl (Apresoline) 25 mg PO BID [facility] Losartan Potassium (Cozaar) 100 mg PO DAILY [facility] Last Admin: 10/20/16 09:17 Dose: 100 mg - Labs Labs: 10/20/16 07:05 10/20/16 07:05 PT 11.7 SECONDS (9.7-12.2) 10/19/16 07:28 INR 1.0 10/19/16 07:28 APTT 33 SECONDS (21-34) 10/19/16 07:28
--- NOTE | 2016-10-20 22:47 | CP.PCM.PN ---
Subjective - Date & Time of Evaluation Date of Evaluation: 10/20/16 Time of Evaluation: 13:20 - Subjective Subjective: Patient slurred speech resolved today. Creatinine 2.8. Dr Hauser following patient status closely. He is presently on eliquis and plavix. Neurogy evaluating MRI of the brain. Objective - Vital Signs/Intake and Output Vital Signs (last 24 hours): Temp Pulse Resp BP Pulse Ox 98.1 F 59 L 18 184/93 H 96 10/20/16 15:45 10/20/16 15:45 10/20/16 15:45 10/20/16 15:45 10/20/16 15:45 Intake and Output: 10/20/16 10/21/16 18:59 06:59 Intake Total 350 Output Total 725 Balance -375 - Medications Medications: Current Medications Albuterol Sulfate (Albuterol 0.042% Inhal Lila (1.25mg/3ml) Ud) 1.25 mg INH RTID [facility] Last Admin: 10/20/16 19:35 Dose: 1.25 mg Amlodipine Besylate (Norvasc) 10 mg PO DAILY [facility] Last Admin: 10/20/16 09:17 Dose: 10 mg Apixaban (Eliquis) 2.5 mg PO BID [facility] Last Admin: 10/20/16 18:58 Dose: 2.5 mg Clopidogrel Bisulfate (Plavix) 75 mg PO DAILY [facility] Last Admin: 10/20/16 09:17 Dose: 75 mg Ferric Sodium Gluconate Complex (Ferrlecit) 125 mg IVPB DAILY [facility] Stop: 10/23/16 10:01 Hydralazine HCl (Apresoline) 25 mg PO BID [facility] Last Admin: 10/20/16 18:58 Dose: 25 mg Losartan Potassium (Cozaar) 100 mg PO DAILY [facility] Last Admin: 10/20/16 09:17 Dose: 100 mg - Labs Labs: 10/20/16 07:05 10/20/16 07:05 PT 11.7 SECONDS (9.7-12.2) 10/19/16 07:28 INR 1.0 10/19/16 07:28 APTT 33 SECONDS (21-34) 10/19/16 07:28 - Constitutional Appears: No Acute Distress - Head Exam Head Exam: NORMAL INSPECTION - Eye Exam Eye Exam: Normal appearance - ENT Exam ENT Exam: Normal External Ear Exam - Neck Exam Neck Exam: Normal Inspection - Respiratory Exam Respiratory Exam: Decreased Breath Sounds - Cardiovascular Exam Cardiovascular Exam: Irregular Rhythm - GI/Abdominal Exam GI & Abdominal Exam: Normal Bowel Sounds - Rectal Exam Rectal Exam: Deferred - Exam Exam: NORMAL INSPECTION - Neurological Exam Neurological Exam: Oriented x3 - Psychiatric Exam Psychiatric exam: Depressed Assessment and Plan (1) Atrial fibrillation Status: Acute (2) Renal insufficiency Status: Acute (3) DVT (deep venous thrombosis) Status: Acute (4) Gout Status: Acute (5) Hypertensive chronic kidney disease with stage 1 through stage 4 chronic kidney disease, or unspecified chronic kidney disease Status: Acute (6) Proteinuria Status: Acute (7) Weakness Status: Acute (8) Atrial fibrillation by electrocardiogram Status: Chronic (9) CKD (chronic kidney disease) stage 3, GFR 30-59 ml/min Status: Chronic
[2016-10-21] MEDS: Albuterol 0.042% Inhal Sol (1.25 mg/3 mL) UD INH SCH ×3 (08:14→19:50)
[2016-10-21 08:57] LABS: ALBUMIN 3.4 g/dL (3.5-5.0)
[2016-10-21 09:00] LABS: CALCIUM 8.5 mg/dl (8.6-10.4)
[2016-10-21] MEDS: Ferric Sodium Gluconat Complex 62.5 mg/5 ml Vial IVPB SCH (11:23)
--- NOTE | 2016-10-21 12:04 | CP.PCM.PN ---
Subjective - Date & Time of Evaluation Date of Evaluation: 10/21/16 Time of Evaluation: 10:30 - Subjective Subjective: no complaints still weak unable to rise in bed by himself noted bp still elevated pt with poor insight into his condition no edema no chest pain not sob at rest no rash no nausea no vomiting no diarrhea no headache no cold intolerance no fever Objective - Vital Signs/Intake and Output Vital Signs (last 24 hours): Temp Pulse Resp BP Pulse Ox 97.9 F 54 L 18 170/84 H 98 10/21/16 07:30 10/21/16 07:30 10/21/16 07:30 10/21/16 08:36 10/21/16 07:30 - Medications Medications: Current Medications Albuterol Sulfate (Albuterol 0.042% Inhal Lila (1.25mg/3ml) Ud) 1.25 mg INH RTID [facility] Last Admin: 10/21/16 08:14 Dose: 1.25 mg Amlodipine Besylate (Norvasc) 10 mg PO DAILY [facility] Last Admin: 10/21/16 11:05 Dose: Not Given Apixaban (Eliquis) 2.5 mg PO BID [facility] Last Admin: 10/21/16 11:27 Dose: 2.5 mg Clopidogrel Bisulfate (Plavix) 75 mg PO DAILY [facility] Last Admin: 10/21/16 11:28 Dose: 75 mg Ferric Sodium Gluconate Complex (Ferrlecit) 125 mg IVPB DAILY [facility] Stop: 10/23/16 10:01 Last Admin: 10/21/16 11:23 Dose: 125 mg Hydralazine HCl (Apresoline) 50 mg PO BID [facility] Losartan Potassium (Cozaar) 100 mg PO DAILY [facility] Last Admin: 10/21/16 11:04 Dose: Not Given - Labs Labs: 10/20/16 07:05 10/21/16 08:19 PT 11.7 SECONDS (9.7-12.2) 10/19/16 07:28 INR 1.0 10/19/16 07:28 APTT 33 SECONDS (21-34) 10/19/16 07:28 - Constitutional Appears: Chronically Ill - Head Exam Head Exam: ATRAUMATIC Additional comments: silver discoloration to skin - Eye Exam Eye Exam: EOMI Pupil Exam: NORMAL ACCOMODATION - ENT Exam ENT Exam: Mucous Membranes Moist - Respiratory Exam Respiratory Exam: NORMAL BREATHING PATTERN. absent: Accessory Muscle Use - GI/Abdominal Exam GI & Abdominal Exam: Normal Bowel Sounds. absent: Tenderness - Neurological Exam Neurological Exam: Alert, Oriented x3 - Skin Skin Exam: absent: Normal Color Additional comments: silver discoloration Assessment and Plan - Assessment and Plan (Free Text) Assessment: ckd stage 4 silver toxicity weakness htn bp meds increased pt with poor insight and compliance with medical condition
--- NOTE | 2016-10-21 23:31 | CP.PCM.PN ---
Subjective - Date & Time of Evaluation Date of Evaluation: 10/21/16 Time of Evaluation: 15:40 - Subjective Subjective: Slow progess with less slurred speech. Blood pressure still elevated and increase in meds necessary. Patient being followed by nephrology. Will order physical therapy. Objective - Vital Signs/Intake and Output Vital Signs (last 24 hours): Temp Pulse Resp BP Pulse Ox 98.4 F 70 20 177/82 H 98 10/21/16 15:31 10/21/16 17:30 10/21/16 15:31 10/21/16 15:31 10/21/16 15:31 - Medications Medications: Current Medications Albuterol Sulfate (Albuterol 0.042% Inhal Lila (1.25mg/3ml) Ud) 1.25 mg INH RTID [facility] Last Admin: 10/21/16 19:50 Dose: 1.25 mg Amlodipine Besylate (Norvasc) 10 mg PO DAILY [facility] Last Admin: 10/21/16 11:05 Dose: Not Given Apixaban (Eliquis) 2.5 mg PO BID [facility] Last Admin: 10/21/16 18:05 Dose: 2.5 mg Clopidogrel Bisulfate (Plavix) 75 mg PO DAILY [facility] Last Admin: 10/21/16 11:28 Dose: 75 mg Ferric Sodium Gluconate Complex (Ferrlecit) 125 mg IVPB DAILY [facility] Stop: 10/23/16 10:01 Last Admin: 10/21/16 11:23 Dose: 125 mg Hydralazine HCl (Apresoline) 50 mg PO BID [facility] Last Admin: 10/21/16 18:05 Dose: 50 mg Losartan Potassium (Cozaar) 100 mg PO DAILY [facility] Last Admin: 10/21/16 11:04 Dose: Not Given - Labs Labs: 10/20/16 07:05 10/21/16 08:19 PT 11.7 SECONDS (9.7-12.2) 10/19/16 07:28 INR 1.0 10/19/16 07:28 APTT 33 SECONDS (21-34) 10/19/16 07:28 - Constitutional Appears: Chronically Ill - Head Exam Head Exam: NORMAL INSPECTION - Eye Exam Eye Exam: Normal appearance Pupil Exam: NORMAL ACCOMODATION - ENT Exam ENT Exam: Normal Exam - Neck Exam Neck Exam: Normal Inspection - Respiratory Exam Respiratory Exam: Decreased Breath Sounds - Cardiovascular Exam Cardiovascular Exam: Irregular Rhythm - GI/Abdominal Exam GI & Abdominal Exam: Normal Bowel Sounds - Rectal Exam Rectal Exam: Deferred - Exam Exam: NORMAL INSPECTION - Extremities Exam Extremities Exam: Tenderness - Back Exam Back Exam: NORMAL INSPECTION - Neurological Exam Neurological Exam: Alert - Psychiatric Exam Psychiatric exam: Depressed - Skin Skin Exam: Dry Assessment and Plan (1) Atrial fibrillation Status: Acute (2) Renal insufficiency Status: Acute (3) DVT (deep venous thrombosis) Status: Acute (4) Gout Status: Acute (5) Hypertensive chronic kidney disease with stage 1 through stage 4 chronic kidney disease, or unspecified chronic kidney disease Status: Acute (6) Weakness Status: Acute (7) Atrial fibrillation by electrocardiogram Status: Chronic (8) CKD (chronic kidney disease) stage 3, GFR 30-59 ml/min Status: Chronic
[2016-10-22] MEDS: Albuterol 0.042% Inhal Sol (1.25 mg/3 mL) UD INH SCH ×3 (07:31→19:49)
[2016-10-22 08:13] LABS: ALBUMIN 3.3 g/dL (3.5-5.0)
[2016-10-22 08:15] LABS: ALB/GLOB RATIO 0.9 (1.0-2.1); CALCIUM 8.5 mg/dl (8.6-10.4)
[2016-10-22] MEDS: Ferric Sodium Gluconat Complex 62.5 mg/5 ml Vial IVPB SCH (10:28)
[2016-10-23] MEDS: Albuterol 0.042% Inhal Sol (1.25 mg/3 mL) UD INH SCH (07:27)
[2016-10-23 07:45] LABS: ALBUMIN 3.2 g/dL (3.5-5.0)
[2016-10-23 07:50] LABS: CALCIUM 8.9 mg/dl (8.6-10.4)
[2016-10-23] MEDS: Ferric Sodium Gluconat Complex 62.5 mg/5 ml Vial IVPB SCH (09:43)
--- NOTE | 2016-10-23 11:58 | CP.PCM.PN ---
Subjective - Date & Time of Evaluation Date of Evaluation: 10/23/16 Time of Evaluation: 11:54 - Subjective Subjective: Discussed situation with patient- advised him of need to control BP. Discussed advanced renal disease. No n, v, SOB, f, chills, CPs Wants to go home soon. Will need better compliance with meds Objective - Vital Signs/Intake and Output Vital Signs (last 24 hours): Temp Pulse Resp BP Pulse Ox 98.7 F 65 18 169/79 H 95 10/23/16 07:10 10/23/16 07:10 10/23/16 07:10 10/23/16 07:10 10/23/16 07:10 - Medications Medications: Current Medications Acetaminophen (Tylenol 325mg Tab) 650 mg PO Q6 PRN PRN Reason: Pain Albuterol Sulfate (Albuterol 0.042% Inhal Lila (1.25mg/3ml) Ud) 1.25 mg INH RTID [facility] Last Admin: 10/23/16 07:27 Dose: 1.25 mg Amlodipine Besylate (Norvasc) 10 mg PO DAILY [facility] Last Admin: 10/23/16 09:43 Dose: 10 mg Apixaban (Eliquis) 2.5 mg PO BID [facility] Last Admin: 10/23/16 09:43 Dose: 2.5 mg Clopidogrel Bisulfate (Plavix) 75 mg PO DAILY [facility] Last Admin: 10/23/16 09:43 Dose: 75 mg Hydralazine HCl (Apresoline) 50 mg PO BID [facility] Last Admin: 10/23/16 09:43 Dose: 50 mg Losartan Potassium (Cozaar) 100 mg PO DAILY [facility] Last Admin: 10/23/16 09:43 Dose: 100 mg - Labs Labs: 10/20/16 07:05 10/23/16 06:58 PT 11.7 SECONDS (9.7-12.2) 10/19/16 07:28 INR 1.0 10/19/16 07:28 APTT 33 SECONDS (21-34) 10/19/16 07:28 - Constitutional Appears: Non-toxic, No Acute Distress, Chronically Ill - Head Exam Head Exam: ATRAUMATIC, NORMAL INSPECTION - Eye Exam Eye Exam: EOMI, Normal appearance - Neck Exam Neck Exam: Normal Inspection. absent: Tenderness - Respiratory Exam Respiratory Exam: Clear to Ausculation Bilateral, NORMAL BREATHING PATTERN - Cardiovascular Exam Cardiovascular Exam: REGULAR RHYTHM, +S1 - GI/Abdominal Exam GI & Abdominal Exam: Soft. absent: Tenderness - Extremities Exam Extremities Exam: Normal Inspection. absent: Tenderness - Neurological Exam Neurological Exam: Awake, CN II-XII Intact - Skin Skin Exam: Dry, Warm Assessment and Plan (1) Atrial fibrillation Status: Acute (2) Silver poisoning syndrome Status: Acute (3) Hypertensive chronic kidney disease with stage 1 through stage 4 chronic kidney disease, or unspecified chronic kidney disease Status: Acute (4) CKD stage 4 secondary to hypertension Status: Acute - Assessment and Plan (Free Text) Plan: Add diuretic; continue other meds Monitor BP Advised better compliance with meds, and follow up with PMD Eventually CKD will likely advance- pt advised.
--- NOTE | 2016-10-23 13:06 | VASCLAB ---
PROCEDURE: HISTORY: TO ASSESS STENOSIS COMPARISON: None available. TECHNIQUE: Grayscale and duplex Doppler evaluation of the cervical carotid and vertebral arteries were performed. The common carotid, carotid bifurcations and cervical Internal Carotid Artery (ICA) and proximal External Carotid Artery (ECA) were evaluated. The vertebral arteries were evaluated for gross patency and flow direction. Report prepared by Sharad Lynch, BS, RVT FINDINGS: RIGHT CAROTID ARTERIES: 1. Common Carotid Artery: No significant focal plaque formation of the right common carotid artery. Maximum Peak Systolic velocity: 66 cm/sec: End-diastolic velocity 9 cm/sec. 2. Carotid Bifurcation: Heterogeneous plaque formation. Maximum Peak Systolic velocity: 43 cm/sec: End-diastolic velocity 8 cm/sec. 3. Internal Carotid Artery: Plaque description: 3.1. Proximal Segment: Peak systolic velocity 64 cm/sec: End-diastolic velocity 12 cm/sec - % stenosis 0-15% 3.2. Middle Segment: Peak systolic velocity 81 cm/sec: End-diastolic velocity 16 cm/sec - % stenosis 0-15% 3.3. Distal Segment: Peak systolic velocity 84 cm/sec: End-diastolic velocity 29 cm/sec - % stenosis 0-15% 4. External Carotid Artery: No significant focal plaque formation. Peak systolic velocity 127 cm/sec 5. ICA/CCA Ratio: 1.3 LEFT CAROTID ARTERIES: 1. Common Carotid Artery: No significant focal plaque formation of the left common carotid artery. Maximum Peak Systolic velocity: 52 cm/sec: End-diastolic velocity 5 cm/sec. 2. Carotid Bifurcation: plaque formation. Maximum Peak Systolic velocity: 54 cm/sec: End-diastolic velocity 6 cm/sec. 3. Internal Carotid Artery: Plaque description: 3.1. Proximal Segment: Peak systolic velocity 47 cm/sec: End-diastolic velocity 11 cm/sec - % stenosis 0-15% 3.2. Middle Segment: Peak systolic velocity 87 cm/sec: End-diastolic velocity 19 cm/sec - % stenosis 0-15% 3.3. Distal Segment: Peak systolic velocity 74 cm/sec: End-diastolic velocity 12 cm/sec - % stenosis 0-15% 4. External Carotid Artery: No significant focal plaque formation. Peak systolic velocity 120 cm/sec 5. ICA/CCA Ratio: 1.7 VERTEBRAL ARTERIES: 1. Right Vertebral Artery: The right vertebral artery flow direction is antegrade. 2. Left Vertebral Artery: The left vertebral artery flow direction is antegrade. OTHER FINDINGS: 1. Right Brachial Blood pressure: 120 mmHg. 2. Left Brachial Blood pressure: 120 mmHg. IMPRESSION: RIGHT: Duplex scan does not suggest hemodynamically significant stenosis of the right extracranial carotid arteries. LEFT: Duplex scan does not suggest hemodynamically significant stenosis of the left extracranial carotid arteries.
--- NOTE | 2016-10-23 13:17 | CP.PCM.PN ---
Subjective - Date & Time of Evaluation Date of Evaluation: 10/23/16 Time of Evaluation: 13:13 Objective - Vital Signs/Intake and Output Vital Signs (last 24 hours): Temp Pulse Resp BP Pulse Ox 98.7 F 65 18 169/79 H 95 10/23/16 07:10 10/23/16 07:10 10/23/16 07:10 10/23/16 07:10 10/23/16 07:10 - Medications Medications: Current Medications Acetaminophen (Tylenol 325mg Tab) 650 mg PO Q6 PRN PRN Reason: Pain Albuterol Sulfate (Albuterol 0.042% Inhal Lila (1.25mg/3ml) Ud) 1.25 mg INH RTID [facility] Last Admin: 10/23/16 07:27 Dose: 1.25 mg Amlodipine Besylate (Norvasc) 10 mg PO DAILY [facility] Last Admin: 10/23/16 09:43 Dose: 10 mg Apixaban (Eliquis) 2.5 mg PO BID [facility] Last Admin: 10/23/16 09:43 Dose: 2.5 mg Clopidogrel Bisulfate (Plavix) 75 mg PO DAILY [facility] Last Admin: 10/23/16 09:43 Dose: 75 mg Hydralazine HCl (Apresoline) 50 mg PO BID [facility] Last Admin: 10/23/16 09:43 Dose: 50 mg Hydrochlorothiazide (Hydrodiuril) 25 mg PO DAILY [facility] Last Admin: 10/23/16 12:45 Dose: 25 mg Losartan Potassium (Cozaar) 100 mg PO DAILY [facility] Last Admin: 10/23/16 09:43 Dose: 100 mg - Labs Labs: 10/20/16 07:05 10/23/16 06:58 PT 11.7 SECONDS (9.7-12.2) 10/19/16 07:28 INR 1.0 10/19/16 07:28 APTT 33 SECONDS (21-34) 10/19/16 07:28 Assessment and Plan - Assessment and Plan (Free Text) Plan: Patient seen and examined. Patient admitted for A. Fib, Silver poisoning syndrome, Hypertension, CKD Plan: Add diuretic; continue other meds Monitor BP Advised better compliance with meds, and follow up with PMD Eventually CKD will likely advance- pt advised. Follow up with Dr Chavez, Dr. Cook and Dr. Hauser Return to ED if any worsening s/s agree, verbalize understanding
[2016-10-23 18:12] VITALS: BP 154/72; PULSE 70; RESP 20; TEMP 98.3; O2SAT 100
--- NOTE | 2016-10-24 01:31 | PN ---
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 PHYSICAL EXAMINATION VITAL SIGNS: Blood pressure 159/78, mean arterial pressure 105, respiratory rate 16, temperature 98.5, pulse rate 80 and regular. NEUROLOGIC: The patient is more awake, alert, and oriented to person, place, and time. He claims his right-sided weakness is not improving because of REMI stocking, which was uncomfortable to him on his right leg. Speech is intact. Mild facial asymmetry noted on his right side with nasolabial flattening. Right arm is 1/5, right leg 1/5. Deep tendon reflexes are hyper to compare with left side. Plantars are upgoing. MEDICATIONS: Hydralazine, losartan, Eliquis, iron, Norvasc, and Plavix. RECOMMENDATION: Eliquis dose can be increased to 5 mg twice a day if medically stable. The patient should have physical therapy and that has to be started and rehab placement should be placed. The patient will be followed up closely with you.. Cb Cook MD
--- NOTE | 2016-10-24 07:03 | CP.PCM.DIS ---
Provider - Provider Date of Admission: 10/18/16 18:41 Attending physician: Michael Dubose MD Time Spent in preparation of Discharge (in minutes): 26 Diagnosis - Discharge Diagnosis (1) Atrial fibrillation Status: Acute Priority: Medium (2) Renal insufficiency Status: Acute Priority: Medium (3) DVT (deep venous thrombosis) Status: Acute (4) Gout Status: Acute (5) Hypertensive chronic kidney disease with stage 1 through stage 4 chronic kidney disease, or unspecified chronic kidney disease Status: Acute (6) Weakness Status: Acute Priority: Medium (7) Atrial fibrillation by electrocardiogram Status: Chronic Priority: Medium (8) CKD (chronic kidney disease) stage 3, GFR 30-59 ml/min Status: Chronic Priority: Medium Hospital Course - Lab Results Lab Results: Most Recent Lab Values WBC 4.9 K/uL (4.8-10.8) 10/20/16 07:05 RBC 4.66 Mil/uL (4.40-5.90) 10/20/16 07:05 Hgb 12.7 g/dL (12.0-18.0) 10/20/16 07:05 Hct 39.2 % (35.0-51.0) 10/20/16 07:05 MCV 84.2 fL (80.0-94.0) 10/20/16 07:05 MCH 27.2 pg (27.0-31.0) 10/20/16 07:05 MCHC 32.3 g/dL (33.0-37.0) L 10/20/16 07:05 RDW 16.8 % (11.5-14.5) H 10/20/16 07:05 Plt Count 212 K/uL (130-400) 10/20/16 07:05 MPV 9.0 fL (7.2-11.7) 10/20/16 07:05 Neut % (Auto) 59.7 % (50.0-75.0) 10/18/16 16:56 Lymph % (Auto) 22.8 % (20.0-40.0) 10/18/16 16:56 Andrew % (Auto) 11.8 % (0.0-10.0) H 10/18/16 16:56 Eos % (Auto) 4.0 % (0.0-4.0) 10/18/16 16:56 Baso % (Auto) 1.7 % (0.0-2.0) 10/18/16 16:56 Neut # 3.1 K/uL (1.8-7.0) 10/18/16 16:56 Lymph # 1.2 K/uL (1.0-4.3) 10/18/16 16:56 Andrew # 0.6 K/uL (0.0-0.8) 10/18/16 16:56 Eos # 0.2 K/uL (0.0-0.7) 10/18/16 16:56 Baso # 0.1 K/uL (0.0-0.2) 10/18/16 16:56 PT 11.7 SECONDS (9.7-12.2) 10/19/16 07:28 INR 1.0 10/19/16 07:28 APTT 33 SECONDS (21-34) 10/19/16 07:28 Puncture Site R rad 10/20/16 05:05 pCO2 32 mm/Hg (35-45) L 10/20/16 05:05 pO2 74 mm/Hg (80-100) L 10/20/16 05:05 HCO3 24.0 mmol/L (21-28) 10/20/16 05:05 ABG pH 7.45 (7.35-7.45) 10/20/16 05:05 ABG Total CO2 23.2 mmol/L (22-28) 10/20/16 05:05 ABG O2 Saturation 97.1 % (95-98) 10/20/16 05:05 ABG Base Excess -1.1 mmol/L (-2.0-3.0) 10/20/16 05:05 ABG Hemoglobin 12.3 g/dL (11.7-17.4) 10/20/16 05:05 ABG Carboxyhemoglobin 1.7 % (0.5-1.5) H 10/20/16 05:05 POC ABG HHb (Measured) 2.8 % (0.0-5.0) 10/20/16 05:05 ABG Methemoglobin 1.0 % (0.0-3.0) 10/20/16 05:05 Amo Test Pos 10/20/16 05:05 A-a O2 Difference 36.0 mm/Hg 10/20/16 05:05 Respiratory Index 0.5 10/20/16 05:05 Hgb O2 Saturation 94.6 % (95.0-98.0) L 10/20/16 05:05 Liter Flow 0 10/20/16 05:05 FiO2 21.0 % 10/20/16 05:05 Sodium 141 mmol/L (132-148) 10/23/16 06:58 Potassium 4.6 mmol/L (3.6-5.2) 10/23/16 06:58 Chloride 109 mmol/L (98-107) H 10/23/16 06:58 Carbon Dioxide 18 mmol/L (22-30) L 10/23/16 06:58 Anion Gap 19 (10-20) 10/23/16 06:58 BUN 37 mg/dL (9-20) H 10/23/16 06:58 Creatinine 3.0 MG/DL (0.8-1.5) H 10/23/16 06:58 Est GFR ( Amer) 10/23/16 06:58 Est GFR (Non-Af Amer) 10/23/16 06:58 POC Glucose (mg/dL) 86 mg/dL (65-110) 10/18/16 16:35 Random Glucose 108 mg/dL (75-110) 10/23/16 06:58 Calcium 8.9 mg/dl (8.6-10.4) 10/23/16 06:58 Phosphorus 3.8 mg/dL (2.5-4.5) 10/20/16 07:05 Magnesium 2.2 mg/dL (1.6-2.3) 10/20/16 07:05 % Saturation 14 (20-55) L 10/20/16 07:05 Total Bilirubin 1.9 mg/dL (0.2-1.3) H 10/23/16 06:58 AST 25 U/L (17-59) 10/23/16 06:58 ALT 29 U/L (21-72) 10/23/16 06:58 Alkaline Phosphatase 70 U/L (38-126) 10/23/16 06:58 Total Protein 6.6 g/dL (6.3-8.3) 10/23/16 06:58 Albumin 3.2 g/dL (3.5-5.0) L 10/23/16 06:58 Globulin 3.4 gm/dL (2.2-3.9) 10/23/16 06:58 Albumin/Globulin Ratio 1.0 (1.0-2.1) 10/23/16 06:58 Triglycerides 62 mg/dL (0-149) D 10/20/16 07:05 Cholesterol 152 mg/dL (0-199) 10/20/16 07:05 LDL Cholesterol Direct 103 mg/dL (0-129) 10/20/16 07:05 HDL Cholesterol 29 mg/dL (30-70) L 10/20/16 07:05 Prostate Specific Ag 3.81 ng/mL (0.00-4.0) 10/21/16 08:19 Homocysteine 14.4 umol/L (6.6-14.8) 10/19/16 07:28 PTH Intact Whole Molec 88 pg/mL (14-64) H 10/20/16 07:05 Urine Color Yellow (YELLOW) 10/19/16 15:10 Urine Clarity Clear (Clear) 10/19/16 15:10 Urine pH 7.0 (5.0-8.0) 10/19/16 15:10 Ur Specific [place] 1.009 (1.003-1.030) 10/19/16 15:10 Urine Protein 2+ mg/dL (NEGATIVE) H 10/19/16 15:10 Urine Glucose (UA) Normal mg/dL (Normal) 10/19/16 15:10 Urine Ketones Negative mg/dL (NEGATIVE) 10/19/16 15:10 Urine Blood Negative (NEGATIVE) 10/19/16 15:10 Urine Nitrate Negative (NEGATIVE) 10/19/16 15:10 Urine Bilirubin Negative (NEGATIVE) 10/19/16 15:10 Urine Urobilinogen Normal mg/dL (0.2-1.0) 10/19/16 15:10 Ur Leukocyte Esterase Neg Alondra/uL (Negative) 10/19/16 15:10 Urine WBC (Auto) < 1 /hpf (0-5) 10/19/16 15:10 Urine RBC (Auto) 1 /hpf (0-3) 10/18/16 19:40 Urine Bacteria Mod (<OCC) H 10/18/16 19:40 Ur Random Sodium 94 mmol/L 10/19/16 15:10 Urine Collection Time 24 HRS 10/20/16 11:40 Urine Total Volume 900 mL 10/20/16 11:40 Ur Protein 24 Hr Calc 999.0 mg/24hr (42-225) H 10/20/16 11:40 Discharge Exam - Head Exam Head Exam: ATRAUMATIC, NORMAL INSPECTION - Eye Exam Eye Exam: Normal appearance Pupil Exam: NORMAL ACCOMODATION - ENT Exam ENT Exam: Normal Oropharynx - Neck Exam Neck exam: Normal Inspection - Respiratory Exam Respiratory Exam: Decreased Breath Sounds - Cardiovascular Exam Cardiovascular Exam: Bradycardia - GI/Abdominal Exam GI & Abdominal Exam: Normal Bowel Sounds - Rectal Exam Rectal Exam: Deferred - Exam Exam: NORMAL INSPECTION - Extremities Exam Extremities exam: tenderness - Back Exam Back exam: NORMAL INSPECTION - Neurological Exam Neurological exam: Alert - Psychiatric Exam Psychiatric exam: Depressed - Skin Skin Exam: Dry Discharge Plan - Discharge Medications Prescriptions: hydrALAZINE [Apresoline] 50 mg PO BID #60 tab Losartan [Cozaar] 100 mg PO DAILY #30 tab Apixaban [Eliquis] 5 mg PO BID #14 tab hydroCHLOROthiazide [Hydrodiuril] 25 mg PO DAILY #30 tab amLODIPine [Norvasc] 10 mg PO DAILY #30 tab Clopidogrel [Plavix] 75 mg PO DAILY #30 tab - Follow Up Plan Condition: FAIR Disposition: REHAB FACILITY/REHAB UNIT Patient education suggested?: Yes Instructions: Hydrochlorothiazide (By mouth), Hydralazine (By mouth), Amlodipine (By mouth), Clopidogrel (By mouth), Apixaban (By mouth), Atrial Fibrillation (DC), Heart Healthy Diet (DC), Hypertension (DC), Stroke (DC) Additional Instructions: ADMIT PT UNDER DR DUBOSE'S SERVICES-- CALL UPON ARRIVAL WITH BED ASSIGNMENT AND FOR ADMISSION ORDERS FOLLOW UP WITH DR DUBOSE IN THE OFFICE IN 2-3 DAYS-- CALL FOR AN APPOINTMENT FOLLOW UP WITH DR SIEGEL IN THE OFFICE IN 3-5 DAYS-- CALL FOR AN APPOINTMENT FOLLOW UP WITH YAYO CONROY IN THE OFFICE IN 3-5 DAYS-- CALL FOR AN APPOINTMENT CONTINUE MEDS PER MED REC PLEASE DISCONTINUE SILVER SUPPLEMENT RETURN TO ED IF ANY WORSENING SYMPTOMS Referrals: Yayo Hauser MD [Staff Provider] - Michael Dubose MD [Staff Provider] - Cb Siegel MD [Staff Provider] - Mohit Mckeon MD [Staff Provider] - Memo Israel MD [Staff Provider] -
== END 2016-10-23 18:30 | DRG 64 ==
LOC: C.ER 16:31 → C.9E 18:41 → C.6T 19:36 → C.9E 19:43 → C.6T 21:06
PROVIDERS: ADMIT Internal Medicine; ATTEND Internal Medicine
DX: I63.40 Cerebral infarction due to embolism of unspecified cerebral artery (principal); I21.4 Non-ST elevation (NSTEMI) myocardial infarction; N17.9 Acute kidney failure, unspecified; I63.00 Cerebral infarction due to thrombosis of unspecified precerebral artery; G81.91 Hemiplegia, unspecified affecting right dominant side; J44.1 Chronic obstructive pulmonary disease with (acute) exacerbation; I13.0 Hypertensive heart and chronic kidney disease with heart failure and stage 1 through stage 4 chronic kidney disease, or unspecified chronic kidney disease; I50.9 Heart failure, unspecified; T56.891A Toxic effect of other metals, accidental (unintentional), initial encounter; F03.90 Unspecified dementia, unspecified severity, without behavioral disturbance, psychotic disturbance, mood disturbance, and anxiety; I48.2 Chronic atrial fibrillation; I25.10 Atherosclerotic heart disease of native coronary artery without angina pectoris; M10.9 Gout, unspecified; M19.90 Unspecified osteoarthritis, unspecified site; Z87.891 Personal history of nicotine dependence; Z91.14 Patient's other noncompliance with medication regimen; Z79.01 Long term (current) use of anticoagulants; N18.3 Chronic kidney disease, stage 3 (moderate)

== ENCOUNTER 2017-12-06 21:24 | Emergency (ER) | payer MEDICARE ==
[2017-12-06 21:25] VITALS: BMI 25.1
[2017-12-06] MEDS ORDERED: Nitroglycerin 2% Ointment Foilpak UD TOP STA (22:20)
[2017-12-06 22:32] LABS: BASO % 0.9 % (0.0-2.0); HEMOGLOBIN 13.9 g/dL (12.0-18.0); LYMPH # 0.5 K/uL (1.0-4.3); LYMPH % 11.4 % (20.0-40.0); MEAN CELL VOLUME 84.5 fL (80.0-94.0); MEAN CORPUSCULAR HEMOGLOBIN 29.1 pg (27.0-31.0); MEAN CORPUSCULAR HGB CONC 34.4 g/dL (33.0-37.0); MEAN PLATELET VOLUME 9.2 fL (7.2-11.7); MONO # 0.7 K/uL (0.0-0.8); MONO % 14.3 % (0.0-10.0); NEUT # 3.5 K/uL (1.8-7.0); NEUT % 73.4 % (50.0-75.0); RBC 4.77 Mil/uL (4.40-5.90); RED CELL DISTRIBUTION WIDTH 16.4 % (11.5-14.5); WHITE BLOOD COUNT 4.7 K/uL (4.8-10.8)
[2017-12-06 22:35] LABS: VENOUS BLOOD GAS BASE EXCESS -2.7 mmol/L (0.0-2.0); VENOUS BLOOD GAS PCO2 30 mmHg (40-60); VENOUS BLOOD GAS PO2 41 mm/Hg (30-55); VENOUS BLOOD PH 7.44 (7.32-7.43)
--- NOTE | 2017-12-06 22:38 | C.PDOC ---
History Of Present Illness 72-year-old male is brought to the ED by family for evaluation of lethargy. As per family, patient has not been eating or ambulating well at home. Additional information is limited due to patient's history of dementia. No fevers @ home. Taking too much Vitamin C per @ bedside Always has a grayish discoloration of his head for "many years." @ bedside does not want Dr. Chavez contacted nor for admitting Drinking fluids liberally today due to hot weather Time Seen by Provider: 12/06/17 22:11 Chief Complaint (Nursing): Medical Clearance History Per: Family History/Exam Limitations: other (dementia ) Onset/Duration Of Symptoms: Days Current Symptoms Are (Timing): Still Present Additional History Per: Family Past Medical History Reviewed: Historical Data, Nursing Documentation, Vital Signs Vital Signs: Last Vital Signs Temp 101.4 F H 12/06/17 21:42 Pulse 92 H 12/06/17 21:42 Resp 16 12/06/17 21:42 BP 216/129 H 12/06/17 21:42 Pulse Ox 98 12/06/17 23:34 - Medical History PMH: Arthritis, Atrial Fibrillation, COPD, Depression, HTN, Pneumonia, Chronic Kidney Disease Surgical History: Coronary Stent - [facility] Procedures EXCISION OF RIGHT LOWER LEG MUSCLE, OPEN APPROACH, DIAGN (04/09/16) EXCISION OF TIBIAL NERVE, OPEN APPROACH, DIAGNOSTIC (04/09/16) Family History: States: Unknown Family Hx - Social History Hx Alcohol Use: No Hx Substance Use: No - Immunization History Hx Tetanus Toxoid Vaccination: No Hx Influenza Vaccination: No Hx Pneumococcal Vaccination: No Review Of Systems Review Of Systems: ROS cannot be obtained secondary to pt's inabilty to answer questions. Physical Exam - Physical Exam Appears: Non-toxic, No Acute Distress, Other (mask like face c/w dementia) Skin: Dry, Other (ashen, wallace color to head (as per family, baseline for many years)) Head: Atraumatic, Normacephalic Eye(s): bilateral: Normal Inspection Oral Mucosa: Moist Neck: Supple Chest: Symmetrical, No Deformity, No Tenderness Cardiovascular: Rhythm Regular, No Murmur Respiratory: No Wheezing, Other (egophony to right lower lobe ) Gastrointestinal/Abdominal: Soft, No Tenderness, No Guarding, No Rebound Extremity: Normal ROM, Capillary Refill (less than 2 seconds ), No Swelling ( lower extremities ) ED Course And Treatment - Laboratory Results Result Diagrams: 12/06/17 22:29 12/06/17 22:29 Lab Interpretation: Abnormal (CRI is baseline, BNP elevated, VBG wnl) ECG: Interpreted By Me ECG Rhythm: Sinus Rhythm ECG Interpretation: Normal Rate From EC O2 Sat by Pulse Oximetry: 98 (on RA) Pulse Ox Interpretation: Normal - Radiology CXR: Interpreted by Me CXR Interpretation: Yes: Other (+ mild CHF) Progress Note: Bloodwork, urinalysis, CXR, EKG ordered and reviewed. Nitroglycerin 2% TOP, lasix IV, and Tylenol PO administered. Reevaluation Time: 23:29 Reassessment Condition: Improved - Physician Consult Information Outcome Of Conversation: 2330: d/w Dr. Marycarmen Foss, [facility] Follower- ok to admit. Medical Decision Making Medical Decision Making: mild CHF overdrinking diuretic today elevated BP Fever: no source, no leukocytosis nor L-shift ? viral Rocephin IV empirically for underlying PNA not seen or UTI (UA pending) BC's sent Dementia: baseline per @ bedside. Disposition Doctor Will See Patient In The: Hospital Counseled Patient/Family Regarding: Studies Performed, Diagnosis - Disposition Disposition: HOSPITALIZED Disposition Time: 23:33 Condition: GOOD Forms: [facility] [employer] ([place]) - Clinical Impression Clinical Impression: CKD (chronic kidney disease) stage 3, GFR 30-59 ml/min, CHF (congestive heart failure) - Scribe Statement The provider has reviewed the documentation as recorded by the Scribe (Leidy Foss) Provider Attestation: All medical record entries made by the Scribe were at my direction and personally dictated by me. I have reviewed the chart and agree that the record accurately reflects my personal performance of the history, physical exam, medical decision making, and the department course for this patient. I have also personally directed, reviewed, and agree with the discharge instructions and disposition.
[2017-12-06 22:43] LABS: INR 1.1; PROTHROMBIN TIME 12.5 SECONDS (9.7-12.2)
[2017-12-06 22:44] LABS: CALCIUM 8.8 mg/dl (8.6-10.4)
[2017-12-06 22:46] LABS: ALBUMIN 3.8 g/dL (3.5-5.0)
[2017-12-06] MEDS ORDERED: Nitroglycerin 2% Ointment Foilpak UD TOP ONE (22:53)
[2017-12-06 22:57] LABS: TROPONIN I 0.112 ng/mL (0.00-0.120)
[2017-12-07 00:28] VITALS: BP 210/110; PULSE 83; RESP 14; TEMP 98.1; O2SAT 96
--- NOTE | 2017-12-07 08:23 | RAD ---
Date of service: 12/06/2017 PROCEDURE: CHEST RADIOGRAPH, 1 VIEW HISTORY: SOB COMPARISON: 10/18/2016. FINDINGS: LUNGS: The lungs are well inflated and clear. PLEURA: No pneumothorax or pleural fluid seen. CARDIOVASCULAR: There is moderate. OSSEOUS STRUCTURES: No significant abnormalities. VISUALIZED UPPER ABDOMEN: Normal. OTHER FINDINGS: None. IMPRESSION: No active pulmonary disease.
--- NOTE | 2017-12-07 19:51 | CARD ---
APPROVED REPORT Date of service: 12/06/2017 EKG Measurement Heart [id number] <Conclusion> Undetermined rhythm Left ventricular hypertrophy with repolarization abnormality Abnormal ECG
== END 2017-12-07 01:21 | disposition left against medical advice (07) ==
LOC: C.ER 21:24 → UNDOADMIN 23:24 → C.9E 23:24 → UNDODISIN 12-07 01:13 → C.ER 12-07 01:21
DX: I13.0 Hypertensive heart and chronic kidney disease with heart failure and stage 1 through stage 4 chronic kidney disease, or unspecified chronic kidney disease (principal); I50.9 Heart failure, unspecified; N18.3 Chronic kidney disease, stage 3 (moderate); Z95.5 Presence of coronary angioplasty implant and graft; J44.9 Chronic obstructive pulmonary disease, unspecified; I48.91 Unspecified atrial fibrillation; F03.90 Unspecified dementia, unspecified severity, without behavioral disturbance, psychotic disturbance, mood disturbance, and anxiety
CPT/HCPCS: 71045; 80053; 82803; 82948; 83880; 84484; 85025; 85610; 85730; 93005; 96374; 99283; J1940